=== PATIENT | male | born 1990 | race African-American/Black ===

== ENCOUNTER 2016-11-27 21:49 | Emergency (ER) | payer OTHER ==
[2016-11-27 22:00] VITALS: BP 143/82; PULSE 111; TEMP 98.1; BMI 53.8
--- NOTE | 2016-11-27 22:31 | PDOC ---
History of Present Illness - General Chief Complaint: Rash Stated Complaint: SHINGLES Time Seen by Provider: 11/27/16 22:02 - History of Present Illness Initial Comments: 11/27/16 22:25 CHIEF COMPLAINT: shingles HISTORY OF PRESENT ILLNESS: 26-year-old male with no significant past medical history presents to [facility] with shingles rash. Patient reports that his mother has had this previously and this is exactly the same as her shingles. Patient reports fever and mild nausea but no vomiting. Patient reports Tmax 101.8. Patient has been taking Motrin 800 mg for fever and pain. Patient states the rashes on the right side of his back and wraps around to the front side of his rightchest. No recent travel or sick contacts. PAST MEDICAL HISTORY: seasonal allergies FAMILY HISTORY: mother with shingles SOCIAL HISTORY: Denies tobacco, alcohol, illicit drug use. SURGICAL HISTORY: Denies ALLERGIES: No known drug allergies REVIEW OF SYSTEMS General/Constitutional: Denies fever or chills. Denies weakness, weight change. HEENT: Denies change in vision. Denies ear pain or discharge. Denies sore throat. Cardiovascular: Denies chest pain or shortness of breath. Respiratory: Denies cough, wheezing, or hemoptysis. Gastrointestinal: Denies nausea, vomiting, diarrhea or constipation. Denies rectal bleeding. Genitourinary: Denies dysuria, frequency, or change in urination. Musculoskeletal: Denies joint or muscle swelling or pain. Denies neck or back pain. Skin and breasts: "Shingles rash to R back and R chest." Denies rash or easy bruising. PHYSICAL EXAM General Appearance: Well-appearing, appropriately dressed. No apparent distress. HEENT: EOMI, PERRLA. No conjunctival pallor. No photophobia, scleral icterus. Respiratory/Chest: Lungs CTAB. Cardiovascular: RRR. S1, S2. Musculoskeletal/Extremities: Normal inspection. FROM of all extremities, normal capillary refill. Pelvis Stable. No CVA tenderness. No tenderness to extremities, pedal edema, swelling, erythema or deformity. Integumentary: Unilateral, painful, vesicular rash extending from R upper back wrapping around to R upper chest, approximately 4 inches in height, 10 inches in length. Appropriate color, dry, warm. Neurologic: senior pharmacy technician II-XII intact. Fully oriented, alert. Appropriate mood/affect. Motor strength 5/5. No appreciable EOM palsy, facial droop or sensory deficit. Past History - Past Medical History Allergies/Adverse Reactions: Allergies Allergy/AdvReac Type Severity Reaction Status Date / Time animal dander Allergy Verified 11/27/16 21:58 milan Allergy Severe Uncoded 11/27/16 21:58 dust Allergy Uncoded 11/27/16 21:58 Home Medications: Ambulatory Orders Fexofenadine HCl [Carlie Allergy] 60 mg PO DAILY 11/27/16 Fluticasone Propionate [Flonase Allergy Relief] 9.9 ml NS BID 11/27/16 Oxycodone HCl 5 mg PO TID PRN #10 tablet MDD 3 11/27/16 Valacyclovir HCl [Valtrex] 1,000 mg PO TID #21 tablet 11/27/16 - Immunization History Td Vaccination: Yes Immunization Up to Date: Yes - Psycho/Social/Smoking Cessation Hx Anxiety: No Suicidal Ideation: No Smoking Status: No Smoking History: Never smoked Years of Tobacco Use: 0 Number of Cigarettes Smoked Daily: 0 Cigars Per Day: 0 *Physical Exam - Vital Signs Last Vital Signs Temp Pulse Resp BP Pulse Ox 98.1 F 111 H 18 143/82 99 11/27/16 21:59 11/27/16 21:59 11/27/16 21:59 11/27/16 21:59 11/27/16 21:59 Medical Decision Making - Medical Decision Making 11/27/16 22:30 26-year-old male with no significant past medical history presents to [facility] with shingles rash. Clinical presentation consistent with shingles. Patient has been taking Motrin 800 mg with no relief. Valtrex TID x 7 days Oxycodone 5 mg PRN pain Advised patient to take medication as prescribed and f/u with PMD. Advised patient of signs and symptoms for return to ER; patient verbalized understanding and agrees to plan. *DC/Admit/Observation/Transfer Diagnosis at time of Disposition: Shingles Qualifiers: Herpes zoster complications: without complications Qualified Code(s): B02.9 - Zoster without complications - Discharge Dispostion Disposition: HOME Condition at time of disposition: Stable Admit: No - Prescriptions Prescriptions: Oxycodone HCl 5 mg PO TID PRN #10 tablet MDD 3 PRN Reason: Pain Valacyclovir HCl [Valtrex] 1,000 mg PO TID #21 tablet - Referrals Referrals: Lane Schneider MD [Primary Care Provider] - - Patient Instructions Printed Discharge Instructions: DI for Shingles Additional Instructions: Please take medications as prescribed; do not drive or operate machinery while taking oxycodone. Follow up with your primary care doctor by the end of next week. If you notice any rash near your eyes, or you develop any change in mental status, change in your vision, or paralysis to any part of your face, please return to the ER immediately. - Post Discharge Activity Work/School Note: Back to Work
== END 2016-11-27 22:59 | disposition home or self-care (01) ==
LOC: JERFT 21:49
DX: B02.9 Zoster without complications (principal)
CPT/HCPCS: 99281-25

== ENCOUNTER 2019-07-26 22:54 | Emergency (ER) | payer OTHER ==
[2019-07-26 23:16] VITALS: BP 163/59; PULSE 74; TEMP 98.4; BMI 52.7
[2019-07-27] MEDS ORDERED: IBUPROFEN 400 MG TABLET (FP) PO ONE ×2 (01:22→01:30)
[2019-07-27] MEDS ORDERED: CYCLOBENZAPRINE HCL 5 MG TABLET PO ONE (01:50)
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
[2019-07-27] MEDS ORDERED: CYCLOBENZAPRINE HCL 10 MG TABLET (FP) ONE (02:46)
== END 2019-07-27 03:51 | disposition home or self-care (01) ==
LOC: JER 22:54
DX: S39.012A Strain of muscle, fascia and tendon of lower back, initial encounter (principal); M62.830 Muscle spasm of back; V49.49XA Driver injured in collision with other motor vehicles in traffic accident, initial encounter; Y92.414 Local residential or business street as the place of occurrence of the external cause; Y93.89 Activity, other specified; Y99.8 Other external cause status; Z91.048 Other nonmedicinal substance allergy status
CPT/HCPCS: 99282-25